=== PATIENT | female | born 1995 | race Hispanic/Latino ===

== ENCOUNTER 2018-06-20 20:04 | Emergency (ER) | payer SELFPAY ==
[~2018-06-20] VITALS: Ht 160 cm; Wt 51.7 kg
[2018-06-20 21:29] LABS: BASOPHIL (%) 0.6 % (0-1); BASOPHIL COUNT 0.1 K/uL (0-0.1); EOSINOPHIL (%) 1.2 % (0-5); EOSINOPHIL COUNT 0.1 K/uL (0-0.3); HEMATOCRIT 38.5 % (36.0-46.0); HEMOGLOBIN 13.2 G/DL (11.9-15.5); IMMATURE GRANULOCYTE (%) 0.9 % (0.0-0.7); LYMPHOCYTE (%) 30.8 % (15-42); LYMPHOCYTE COUNT 2.7 K/uL (1.0-2.8); MCH 29.7 PG (29.0-34.0); MCHC 34.3 G/DL (30.0-36.0); MCV 86.7 FL (83-99); MONOCYTE COUNT 0.5 K/uL (0-0.8); NEUTROPHIL (%) 60.5 % (45-76); NEUTROPHIL COUNT 5.3 K/uL (1.8-6.4); PLATELET COUNT 220 K/uL (156-360); RBC DIS.WIDTH-CV 12.5 % (11.8-14.6); RBC DIS.WIDTH-SD 39.9 % (39-53); RED BLOOD COUNT 4.44 M/uL (3.80-5.20); WHITE BLOOD COUNT 8.8 K/uL (4.1-10.2)
[2018-06-20 21:35] LABS: CHLORIDE 107 mEq/L (99-109); POTASSIUM 4.1 mEq/L (3.7-5.4); SODIUM 140 mEq/L (136-147)
[2018-06-20 21:37] LABS: GLUCOSE 103 mg/dL (70-99)
[2018-06-20 21:40] LABS: SERUM ETHYL ALCOHOL < 10 mg/dL
[2018-06-20 21:41] LABS: CREATININE 0.7 mg/dL (0.6-1.3)
[2018-06-20 21:42] LABS: UREA NITROGEN (BUN) 11 mg/dL (9-23)
[2018-06-20 21:43] LABS: GFR ESTIMATE (CALCULATED) > 59 mL/min/
[2018-06-20 21:44] LABS: ACETAMINOPHEN (TYLENOL) 17 mcg/mL (10-30); SALICYLATE < 5.0 MG/DL (15-30)
[2018-06-20 21:50] LABS: QUANTITATIVE HCG < 4.0 MIU/ML
[2018-06-20] MEDS ORDERED: ATARAX,VISTARIL25 MG PO (22:51)
[2018-06-20 23:32] VITALS: BP 128/72
== END 2018-06-21 00:19 | disposition home or self-care (01) ==
LOC: EME 20:04
PROVIDERS: Emergency Medicine
DX: F32.9 Major depressive disorder, single episode, unspecified (principal); F43.23 Adjustment disorder with mixed anxiety and depressed mood
CPT/HCPCS: 80048; 84702; 85025; 90839; 99281; 99285; G0480; Q0177